=== PATIENT | male | born 1945 | race Caucasian/White ===

== ENCOUNTER 2017-06-08 06:14 | Day surgery (SDC) | payer MEDICARE ==
[2017-06-08] MEDS ORDERED: fentaNYL 100 MCG/2 ML INJECTION (J3010) As Ordered (06:38)
[2017-06-08] MEDS ORDERED: VANCOMYCIN 1000 MG/20 ML VIAL (J3370) As Ordered (06:38)
[2017-06-08] MEDS ORDERED: MIDAZOLAM INJ 2 MG/2 ML VIAL (J2250) As Ordered (06:38)
[2017-06-08] MEDS ORDERED: PROPOFOL 200 MG/20 ML VIAL As Ordered (06:39)
[2017-06-08] MEDS ORDERED: ROCURONIUM BROMIDE 50 MG/5 ML VIAL As Ordered (06:39)
[2017-06-08] MEDS ORDERED: ONDANSETRON 4MG/2ML VIAL (J2405) As Ordered ×2 (06:40→10:19)
[2017-06-08] MEDS ORDERED: NEOSTIGMINE 10 MG/10 ML VIAL (J2710) As Ordered (06:40)
[2017-06-08] MEDS ORDERED: GLYCOPYRROLATE INJ 0.2 MG/ML 2 ML VIAL As Ordered (06:40)
[2017-06-08] MEDS ORDERED: LIDOCAINE 2% INJ 100 MG/5 ML SDV (FOR ANES.) As Ordered (06:40)
[2017-06-08] MEDS: LR 1,000 ML IV (07:10)
[2017-06-08] MEDS: VANCOMYCIN HCL 1,000 MG, VIAL MATE ADAPTER 1 EACH in D5W 250 ML IV (07:15)
[2017-06-08 07:22] LABS: BEDSIDE GLUCOSE 279 MG/DL (83-110)
[2017-06-08] MEDS: GENTAMICIN 80 MG in APPROPRIATE DILUENT 1 EA IV (08:04)
[2017-06-08] MEDS ORDERED: ACETAMINOPHEN TAB 650MG DOSE (2X325MG) PO (09:15)
[2017-06-08] MEDS ORDERED: LR 1,000 ML IV (09:15)
[2017-06-08] MEDS ORDERED: fentaNYL 100 MCG/2 ML INJECTION (J3010) IV (09:15)
[2017-06-08] MEDS ORDERED: HumaLOG INSULIN (NovoLOG) PER UNIT As Ordered (09:32)
[2017-06-08] MEDS: HumaLOG INSULIN (NovoLOG) PER UNIT SC (09:35)
[2017-06-08 09:37] LABS: BEDSIDE GLUCOSE 297 MG/DL (83-110)
[2017-06-08] MEDS: ONDANSETRON 4MG/2ML VIAL (J2405) IV (10:20)
[2017-06-08] MEDS: METOCLOPRAMIDE INJ 10MG/2ML VIAL (J2765) IV (10:50)
== END 2017-06-08 13:37 | disposition home or self-care (01) ==
LOC: M SDC 06:14
DX: N30.80 Other cystitis without hematuria (principal); N32.89 Other specified disorders of bladder; N99.61 Intraoperative hemorrhage and hematoma of a genitourinary system organ or structure complicating a genitourinary system procedure; I10 Essential (primary) hypertension; E11.40 Type 2 diabetes mellitus with diabetic neuropathy, unspecified; E78.00 Pure hypercholesterolemia, unspecified; R60.0 Localized edema; K59.00 Constipation, unspecified; K21.9 Gastro-esophageal reflux disease without esophagitis; M54.2 Cervicalgia; M19.90 Unspecified osteoarthritis, unspecified site; N31.9 Neuromuscular dysfunction of bladder, unspecified; N40.0 Benign prostatic hyperplasia without lower urinary tract symptoms; G47.30 Sleep apnea, unspecified; F43.10 Post-traumatic stress disorder, unspecified; R11.2 Nausea with vomiting, unspecified; Z79.899 Other long term (current) drug therapy; Z79.82 Long term (current) use of aspirin; Z79.4 Long term (current) use of insulin; Z88.8 Allergy status to other drugs, medicaments and biological substances; Z88.0 Allergy status to penicillin; Z88.1 Allergy status to other antibiotic agents; Z88.2 Allergy status to sulfonamides; Z92.89 Personal history of other medical treatment
CPT/HCPCS: 52234

== ENCOUNTER 2023-12-05 09:05 | Day surgery (SDC) | payer MEDICARE, OTHER ==
[2023-11-28] MEDS: OFLOXACIN 0.3 % (OCUFLOX) OPTH SOL 5ML OD ONE (09:26)
[2023-11-28] MEDS: LIDOCAINE 3.5 % 1ML OPHTH TOPICAL GEL OU ONE (09:26)
[~2023-12-05] VITALS: Ht 175.3 cm; Wt 104.3 kg
[~2023-12-05 09:05] MED LIST: ACID1CAP PO; ACID1TAB PO; ALLE10TA62 PO; ALPH300C PO; ASPI81TA26 PO; ATOR80TA59 PO; ATROPINE SULFATE 1% OPHTH SOLN 2ML BTL OD SCH; CALC200T3 PO; CYAN100049 PO; FAMO40TA3 PO; FLOM0.4C39 PO; FURO20TA2 PO; INSUH10VL SC; INSULANT SC; LASI20TA3 PO; LEVO1TAB39 PO; LISI2.5T9 PO; MAGN400C2 PO; MIDAZOLAM INJ 2MG/2ML VIAL As Ordered ONE; MIRA3350 PO; MM S100C PO; MOXIFLOXACIN 0.6MG/0.4ML INTRAOCULAR SYRINGE As Ordered ONE; OMEP1CAP73 PO; ONDA-282; OSTETAB2 PO; PHEN100C PO; PHENYLEPHRINE 10% OPHTH SOL 5ML OD PRN; PHENYLEPHRINE 2.5% OPHTH SOL 2ML OD SCH; RANI150T PO; REGL10TA6 PO; TROPICAMIDE 1% OPHTH SOLN 15ML OD SCH; ZYRT10CA5 PO; fentaNYL 100 MCG/2 ML INJECTION As Ordered ONE
[2023-12-05] MEDS: ATROPINE SULFATE 1% OPHTH SOLN 2ML BTL OD SCH (09:26)
[2023-12-05] MEDS: LIDOCAINE 3.5 % 1ML OPHTH TOPICAL GEL OU ONE (09:26)
[2023-12-05] MEDS: TROPICAMIDE 1% OPHTH SOLN 15ML OD SCH (09:26)
[2023-12-05] MEDS: OFLOXACIN 0.3 % (OCUFLOX) OPTH SOL 5ML OD ONE (09:26)
[2023-12-05] MEDS: PHENYLEPHRINE 2.5% OPHTH SOL 2ML OD SCH (09:26)
[2023-12-05] MEDS ORDERED: GLUCAGON INJ 1MG VIAL SC PRN (09:45)
[2023-12-05] MEDS ORDERED: DEXTROSE 50% 50ML SYRINGE IV PRN (09:45)
[2023-12-05] MEDS ORDERED: GLUCOSE 4 GM CHEW PO PRN (09:45)
[2023-12-05] MEDS: INSULIN LISPRO (NovoLOG) PER UNIT SC PRN (09:57)
[2023-12-05] MEDS: CEFUROXIME 1MG/0.1ML INTRACAMERAL INJ As Ordered ONE (10:32)
[2023-12-05] MEDS: BSS IRRIG/VANCO(10MG)/TOBRA(5MG)/EPINEPH(1:1000-0.5CC)500ML BAG-ORONLY As Ordered ONE (10:32)
[2023-12-05] MEDS: LIDOCAINE 1% SDV 5ML VIAL As Ordered ONE (10:32)
[2023-12-05 10:47] VITALS: BP 183/86; TEMP 96.7; O2SAT 97
== END 2023-12-05 11:15 | disposition home or self-care (01) ==
LOC: M SDC 09:05
PROVIDERS: ATTEND Ophthalmology
DX: H25.11 Age-related nuclear cataract, right eye (principal); H57.03 Miosis; E78.5 Hyperlipidemia, unspecified; E11.9 Type 2 diabetes mellitus without complications; R60.9 Edema, unspecified; K21.9 Gastro-esophageal reflux disease without esophagitis; Z88.0 Allergy status to penicillin; Z88.8 Allergy status to other drugs, medicaments and biological substances; Z88.2 Allergy status to sulfonamides; Z79.82 Long term (current) use of aspirin; Z79.4 Long term (current) use of insulin; G47.33 Obstructive sleep apnea (adult) (pediatric); N40.0 Benign prostatic hyperplasia without lower urinary tract symptoms
CPT/HCPCS: 66982; 92015; J0697; J2250; J3010; V2632

== ENCOUNTER 2023-12-12 12:06 | Day surgery (SDC) | payer MEDICARE, OTHER ==
[~2023-12-12] VITALS: Ht 175.3 cm; Wt 102.1 kg
[~2023-12-12 12:06] MED LIST changes: -ATROPINE SULFATE 1% OPHTH SOLN 2ML BTL OD SCH; -MIDAZOLAM INJ 2MG/2ML VIAL As Ordered ONE; -MOXIFLOXACIN 0.6MG/0.4ML INTRAOCULAR SYRINGE As Ordered ONE; -PHENYLEPHRINE 10% OPHTH SOL 5ML OD PRN; +PHENYLEPHRINE 10% OPHTH SOL 5ML OS PRN; -PHENYLEPHRINE 2.5% OPHTH SOL 2ML OD SCH; -TROPICAMIDE 1% OPHTH SOLN 15ML OD SCH; -fentaNYL 100 MCG/2 ML INJECTION As Ordered ONE
[2023-12-12] MEDS ORDERED: ROSU5TAB40 PO (13:09)
[2023-12-12] MEDS ORDERED: SIME125T PO (13:09)
[2023-12-12] MEDS: OFLOXACIN 0.3 % (OCUFLOX) OPTH SOL 5ML OS ONE (13:10)
[2023-12-12] MEDS: ATROPINE SULFATE 1% OPHTH SOLN 2ML BTL OS SCH (13:19)
[2023-12-12] MEDS: TROPICAMIDE 1% OPHTH SOLN 15ML OS SCH (13:19)
[2023-12-12] MEDS: LIDOCAINE 3.5 % 1ML OPHTH TOPICAL GEL OU ONE (13:19)
[2023-12-12] MEDS: PHENYLEPHRINE 2.5% OPHTH SOL 2ML OS SCH (13:19)
[2023-12-12] MEDS: INSULIN LISPRO (NovoLOG) PER UNIT SC PRN (13:25)
[2023-12-12] MEDS: LIDOCAINE 1% SDV 5ML VIAL As Ordered ONE (14:09)
[2023-12-12] MEDS: BSS IRRIG/VANCO(10MG)/TOBRA(5MG)/EPINEPH(1:1000-0.5CC)500ML BAG-ORONLY As Ordered ONE (14:09)
[2023-12-12] MEDS: MOXIFLOXACIN 0.6MG/0.4ML INTRAOCULAR SYRINGE As Ordered ONE (14:09)
[2023-12-12] MEDS: METHYLENE BLUE 0.5% (5MG/ML) 10 ML AMP (PROVAYBLUE) As Ordered ONE (14:09)
[2023-12-12] MEDS: DUOVISC (0.50ML VISCOAT/0.85ML PROVISC) OPHTH KIT As Ordered ONE (14:10)
[2023-12-12] MEDS: TRYPAN BLUE 0.06 % 2.25 ML OPHTH SYR (VISIONBLUE) As Ordered ONE (14:10)
[2023-12-12] MEDS: TRIAMCINOLONE ACETONIDE SUSP 40MG/ML 1ML VIAL As Ordered ONE (14:30)
[2023-12-12] MEDS: ACETYLCHOLINE OPHTH SOLN 1% 2ML (MIOCHOL-E) As Ordered ONE (14:30)
[2023-12-12 14:42] VITALS: BP 169/79; TEMP 96.8; O2SAT 96
== END 2023-12-12 15:07 | disposition home or self-care (01) ==
LOC: M SDC 12:06
PROVIDERS: ATTEND Ophthalmology
DX: H25.12 Age-related nuclear cataract, left eye (principal); H57.03 Miosis; K21.9 Gastro-esophageal reflux disease without esophagitis; K59.00 Constipation, unspecified; R60.9 Edema, unspecified; E78.5 Hyperlipidemia, unspecified; E11.9 Type 2 diabetes mellitus without complications; Z79.899 Other long term (current) drug therapy; Z88.0 Allergy status to penicillin; Z88.2 Allergy status to sulfonamides; Z79.4 Long term (current) use of insulin; Z79.82 Long term (current) use of aspirin; Z99.3 Dependence on wheelchair
CPT/HCPCS: 66982; 92015; J3301; V2632